=== PATIENT | female | born 1980 | race Hispanic/Latino ===

== ENCOUNTER 2022-12-08 06:44 | Observation (INO) | payer BC ==
[2022-12-08] MEDS ORDERED: Ondansetron PF 4 MG/2 ML Vial IVP PRN (23:32)
[2022-12-08] MEDS ORDERED: Promethazine HCl 25 MG/ML VIAL IM PRN (23:32)
[2022-12-08] MEDS ORDERED: Acetaminophen 500 MG TAB PO PRN (23:32)
[2022-12-08] MEDS ORDERED: hydrALAZINE 20 MG/ML VIAL SLOW IVP PRN (23:32)
[2022-12-08] MEDS ORDERED: Docusate 100 MG CAP PO PRN (23:32)
== END 2022-12-09 09:23 | disposition home or self-care (01) ==
LOC: CSHLD/OP 06:44 → CSHLD 17:56
PROVIDERS: ADMIT Obstetrics & Gynecology; ATTEND Obstetrics & Gynecology
DX: O26.853 Spotting complicating pregnancy, third trimester (principal); Z3A.28 28 weeks gestation of pregnancy
CPT/HCPCS: 76815; G0378

== ENCOUNTER 2022-12-15 12:01 | Observation (INO) | payer BC ==
[2022-12-15] MEDS ORDERED: Docusate 100 MG CAP PO PRN (12:23)
[2022-12-15] MEDS ORDERED: Ondansetron PF 4 MG/2 ML Vial IVP PRN (12:23)
[2022-12-15] MEDS ORDERED: Zolpidem Tartrate 5 MG TAB PO PRN ×2 (12:23→15:40)
[2022-12-15] MEDS ORDERED: Acetaminophen 500 MG TAB PO PRN (12:23)
[2022-12-15] MEDS ORDERED: hydrALAZINE 20 MG/ML VIAL SLOW IVP PRN (12:23)
[2022-12-15] MEDS ORDERED: Promethazine HCl 25 MG/ML VIAL IM PRN (12:23)
[2022-12-15] MEDS: hydrOXYzine Pamoate 25 mg Capsule PO PRN ×2 (17:12→20:52)
[2022-12-15] MEDS: Lactated Ringer's 1,000 ML IV SCH ×2 (19:35→22:46)
[2022-12-15] MEDS: NIFEdipine 10 MG CAP PO SCH (20:50)
[2022-12-15 22:46] VITALS: BMI 30.3
[2022-12-15 22:48] LABS: SARS-CoV-2 NAA Rapid Test Not Detected (NotDetected)
[2022-12-16] MEDS: Lactated Ringer's 1,000 ML IV SCH (06:10)
[2022-12-16] MEDS ORDERED: Betamet Acet/Betamet Na Ph 30 MG/5 ML VIAL IM SCH (11:15)
[2022-12-16] MEDS: NIFEdipine 10 MG CAP PO SCH (17:56)
== END 2022-12-16 18:35 | disposition home health service (06) ==
LOC: CSHLD/OP 12:01 → CSHLD 12:05 → INTOOBSV 12:05
PROVIDERS: ADMIT Obstetrics & Gynecology; ATTEND Obstetrics & Gynecology
DX: O41.93X0 Disorder of amniotic fluid and membranes, unspecified, third trimester, not applicable or unspecified (principal); O47.03 False labor before 37 completed weeks of gestation, third trimester; O99.013 Anemia complicating pregnancy, third trimester; D64.9 Anemia, unspecified; O99.283 Endocrine, nutritional and metabolic diseases complicating pregnancy, third trimester; E27.1 Primary adrenocortical insufficiency; O22.93 Venous complication in pregnancy, unspecified, third trimester; Z88.2 Allergy status to sulfonamides; Z88.8 Allergy status to other drugs, medicaments and biological substances; Z88.1 Allergy status to other antibiotic agents; Z98.890 Other specified postprocedural states; Z91.040 Latex allergy status; Z88.5 Allergy status to narcotic agent; Z79.899 Other long term (current) drug therapy; Z20.822 Contact with and (suspected) exposure to COVID-19; Z3A.28 28 weeks gestation of pregnancy
CPT/HCPCS: 96372; G0378; J0702; J7120; Q0177; U0002

== ENCOUNTER 2023-01-11 04:54 | Inpatient (IN) | payer BC ==
[2023-01-11 06:21] VITALS: BMI 33.3
[2023-01-11 06:42] LABS: Fetal Membranes Rupture RUPTURE DETECTED (No Rupture)
[2023-01-11] MEDS ORDERED: Ampicillin 2 GM VIAL ONE (06:48)
[2023-01-11] MEDS ORDERED: Magnesium Sulfate 20 gm/500 ml 20 GM/500 ML BAG ONE (06:48)
[2023-01-11] MEDS ORDERED: Ondansetron PF 4 MG/2 ML Vial IVP PRN (09:00)
[2023-01-11] MEDS ORDERED: Acetaminophen 500 MG TAB PO PRN (09:00)
[2023-01-11] MEDS ORDERED: fentaNYL 50 mcg/mL 1 mL Vial SLOW IVP PRN (09:00)
[2023-01-11] MEDS ORDERED: hydrALAZINE 20 MG/ML VIAL SLOW IVP PRN (09:00)
[2023-01-11] MEDS ORDERED: Promethazine HCl 25 MG/ML VIAL IM PRN (09:00)
[2023-01-11] MEDS ORDERED: Lactated Ringer's 1,000 ML IV SCH ×2 (09:00→10:00)
[2023-01-11] MEDS ORDERED: Tranexamic Acid 1,000 MG/10 ML VIAL IVP PRN (09:05)
[2023-01-11] MEDS ORDERED: Bicitra 30 ML UDCUP PO PRN (09:08)
[2023-01-11] MEDS ORDERED: Famotidine/PF 20 mg/2ml Vial SLOW IVP PRN (09:10)
[2023-01-11] MEDS ORDERED: CEFAZOLIN 2 GM in Sodium Chloride 0.9% 100 ML IVPB SCH (09:15)
[2023-01-11] MEDS ORDERED: Carboprost 250 MCG/ML AMP IM PRN (09:15)
[2023-01-11] MEDS ORDERED: Methylergonovine 0.2 MG/ML VIAL IM PRN (09:15)
[2023-01-11] MEDS ORDERED: Oxytocin 30 units/NS 500 ML 500 ML IVPB SCH (09:15)
[2023-01-11] MEDS ORDERED: Magnesium Sulfate 20 gm/500 ml 20 GM/500 ML BAG IVPB PRN (09:15)
[2023-01-11] MEDS ORDERED: Magnesium Sulfate 20 gm/500 ml 4 GM/100 ML BAG IVPB ONE (09:15)
[2023-01-11] MEDS ORDERED: Misoprostol 200 MCG TAB RC PRN (09:15)
[2023-01-11 09:21] LABS: Hematocrit 31.4 % (34.9-44.5); Hemoglobin 10.5 g/dL (12.0-15.5); Mean Corpuscular HGB CONC 33.4 g/dL (32.0-36.0); Mean Corpuscular Hemoglobin 27.5 pg (27.0-33.0); Mean Corpuscular Volume 82.2 fl (81.6-98.3); Mean Platelet Volume 9.6 fl (7.4-10.4); Platelet Count 419 10x3/uL (150-450); RBC Distribution Width 14.8 % (11.5-14.5); Red Blood Cell (RBC) Count 3.82 10x6/uL (3.90-5.03); White Blood Cell (WBC) Count 8.5 10x3/uL (3.5-10.5)
[2023-01-11] MEDS ORDERED: Azithromycin 500 MG in Sodium Chloride 0.9% 250 ML 250 ML IVPB SCH (09:30)
[2023-01-11 09:50] LABS: HBSAg Index 0.15 S/CO (0-0.99); Hep B Surf Ag - L&D Non-Reactive S/CO (NonReactive)
[2023-01-11 09:52] LABS: Syphilis Antibody Nonreactive (Nonreactive); Syphilis Antibody Index 0.09 S/CO (<1.00 Non-Reactive)
[2023-01-11] MEDS ORDERED: Betamet Acet/Betamet Na Ph 30 MG/5 ML VIAL IM SCH (10:00)
[2023-01-11] MEDS ORDERED: Ampicillin 2 GM in Sodium Chloride 0.9% 100 ML IVPB SCH (12:00)
== END 2023-01-11 14:30 | disposition critical access hospital (66) | DRG 833 ==
LOC: CSHLD/OP 04:54 → CSHLD 06:44
PROVIDERS: ADMIT Obstetrics & Gynecology; ATTEND Obstetrics & Gynecology
DX: O42.913 Preterm premature rupture of membranes, unspecified as to length of time between rupture and onset of labor, third trimester (principal); Z3A.32 32 weeks gestation of pregnancy; Z88.8 Allergy status to other drugs, medicaments and biological substances; Z91.040 Latex allergy status; D64.9 Anemia, unspecified; O99.013 Anemia complicating pregnancy, third trimester
CPT/HCPCS: 36415; 84112; 85027; 86780; 86850; 86900; 86901; 87340; J0290; J3010